=== PATIENT | male | born 1930 | race African-American/Black ===

== ENCOUNTER 2017-03-09 10:40 | Inpatient (IN) | payer MEDICARE, BC ==
--- NOTE | ~2017-03-09 | DS ---
Discharge Summary [facility] [address] [place]. [address] NAME: LUIS M TRAORE SR : [birth year] STATUS : DIS IN PAT#: [id number] AGE: 86 ADM/REG DATE : 03/09/17 MR#: [id number] REPORT SERV DATE: 03/13/17 DICTATED BY: SEBASTIEN GOMEZ DATE: 03/12/17 REPORT STATUS : Draft TRANSCRIBED BY: MODL DATE: 03/12/17 ADMISSION DATE: 03/09/2017 DISCHARGE DATE: 03/12/2017 DISCHARGE DIAGNOSES: 1. Acute on chronic systolic heart failure, ejection fraction of 35%. 2. Acute pulmonary edema and pulmonary hypertension. 3. Dyspnea, orthopnea, and hypoxemia. 4. Chronic kidney disease, stage III, most recent creatinine 1.60. 5. Anemia that is chronic, but did have a positive Hemoccult during this admission. 6. History of cerebrovascular accident. 7. Constipation. DISCHARGE MEDICATIONS: As follows: Lipitor 80 mg at bedtime, Bumex 2 mg daily, carvedilol 6.25 mg p.o. twice a day, vitamin B12 1000 mcg p.o. daily, coenzyme Q10 200 mg daily, ferrous sulfate 325 mg daily, potassium chloride 20 mEq daily, Imdur 30 mg daily, Plavix 75 mg daily, and aspirin 81 mg daily. Also, the patient will be discharging home on 2 liters of oxygen nasal cannula. HISTORY OF PRESENT ILLNESS: A very pleasant 86-year-old male who presented with shortness of breath and orthopnea for two weeks. Please see initial H and P of Dr. Marino Pereira. The patient was admitted to the Hospitalist Service for further evaluation and treatment. He was given IV diuresis. Lab work was ordered and followed. CONSULTS DURING THIS ADMISSION: Include Cardiology, Dr. Oracio Carvalho. PROCEDURES AND IMAGING DURING THIS ADMISSION: Include an echocardiogram showing borderline normal LV size, moderate decrease in systolic function, ejection fraction 35%, some global hypokinesis, afsrodjm-da-vdfsst left ventricular hypertrophy, fqqdgesv-rb-mleyyw pulmonary hypertension, a large left pleural effusion was noted; but when compared to previous study in September 2016, no significant change in ejection fraction. HOSPITAL COURSE: I began seeing the patient on 03/10/2017 where he had began to feel better with diuresis. His shortness of breath symptoms had begun to improve. On review of his lab work, his creatinine had climbed from 1.65 on admission to 1.83 likely with the diuresis. His TSH was checked on admission and it was elevated at 5.780. There was a recheck done with a free T4 and his TSH fell to 2.570 and a free T4 1.22, so no treatment was initiated at this time. He had the above-described echocardiogram. His diuretics were able to be deescalated to pill form. He resumed his prior home dose of Bumex. Creatinine fell back down to 1.6. He was ambulated in the hallway on room air and his sat drop to 85%. Initially, it was thought he did not have home O2, but he does currently have home oxygen and he will be continuing this. Given his symptomatic improvement and good diuresis, he was felt safe for discharge home on 03/12/2017 with instructions to follow up with his primary care next week to obtain an H and H. he will follow up with Cardiology, Dr. Whitfield, in two weeks. Medication changes were an increase in his Coreg dosage to 6.25 twice a day and Imdur has been added to his overall regimen. He was seen by the Heart failure Education Discharge Summary [address] [address] NAME: LUIS M TRAORE : [birth year] STATUS : DIS IN PAT#: [id number] AGE: 86 ADM/REG DATE : 03/09/17 MR#: [id number] REPORT SERV DATE: 03/13/17 DICTATED BY: SEBASTIEN GOMEZ DATE: 03/12/17 REPORT STATUS : Draft TRANSCRIBED BY: ALBERTO DATE: 03/12/17 Team and will receive home health through [email or web address] after discharge. The patient was in agreement with his plan going forward. Questions were answered at bedside extensively. Please note greater than 30 minutes was spent on this discharge for medication teaching, followup planning, and further disposition. DICTATED BY: Sebastien Gomez NP CSC/ALBERTO Sebastien Gomez NP / [id number] CC: Dayan Pierson D.O. F.A.C.P.
--- NOTE | ~2017-03-09 | HP ---
History And Physical [facility] [id number] [place]. [address] NAME: LUIS M TRAORE SR : [birth year] STATUS : ADM IN [facility]#: [id number] AGE: 86 ADM/REG DATE : 03/09/17 MR#: [id number] REPORT SERV DATE: 03/09/17 DICTATED BY: ADRY FELIZ DATE: 03/09/17 REPORT STATUS : Draft TRANSCRIBED BY: MODL DATE: 03/09/17 DATE OF ADMISSION: 03/09/2017 ATTENDING PHYSICIAN: Dr. Min. REASON FOR ADMISSION: Shortness of breath, orthopnea 2 weeks duration, worse last three days. HISTORY: This is an 86-year-old male, with known systolic congestive heart failure, ejection fraction 40%. He is followed by Dr. Whitfield for congestive heart failure. Dr. Beto Koehler saw him last month and he did not adjust the medications. He has some swelling in his lower extremities. He has lost weight at 180 pounds down to 120 pounds. His weight has been fairly stable. He has had maybe a slight increase in swelling in his ankles. His oxygen saturation is 98% with oxygen in the emergency room, and he is feeling better though he does have respirations that appeared to be periodic and resemble a Arslan-Adamson type of respiration. PAST MEDICAL HISTORY: He had an acute right periventricular CVA in the area of the calixto and within the whitehead radiata. He has chronic anemia. He is followed by Dr. Milton for this and given a shot assumed to be Aranesp. MEDICATIONS: Home medications are not identified yet. The patient does not know his home medications. He has chronically elevated troponins, it was 0.2 previously and is 0.12 now. He has falls, weakness, dyspnea with exertion. He has had chronic kidney disease. Creatinine has come up from 1.5 to 1.65 at this admission. His discharge medications in September at the time of his stroke was as follows: 1. Aspirin 81 mg p.o. daily. 2. Atorvastatin 80 mg p.o. at bedtime. 3. Carvedilol 3.125 p.o. b.i.d. 4. Plavix 75 mg p.o. daily. 5. CoQ10 200 mg p.o. daily. 6. Potassium chloride 20 mEq p.o. daily. 7. Vitamin B12 1000 mcg p.o. daily. 8. Ferrous sulfate 325 p.o. daily. SOCIAL HISTORY: He is . He lives off [facility] with his . She is older and disabled as well. He does not smoke cigarettes and really never has. 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 He has 4 children who are alive and well. His older son however has a problem with drugs and probably is drug addicted. 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 He does not take any alcohol. He does attend [employer] at the end of [place] History And Physical [address] [address] NAME: LUIS M TRAORE SR : [birth year] STATUS : ADM IN [facility]#: [id number] AGE: 86 ADM/REG DATE : 03/09/17 MR#: [id number] REPORT SERV DATE: 03/09/17 DICTATED BY: ADRY FELIZ DATE: 03/09/17 REPORT STATUS : Draft TRANSCRIBED BY: ALBERTO DATE: 03/09/17 [place]. FAMILY HISTORY: His father of cigarette smoking and lung disease. Mother of an [place]. He has brothers and sisters who have COPD as well though he never smoked himself. REVIEW OF SYSTEMS: He denied any chest pain, shortness of breath, or orthopnea. He has episodic and periodic shortness of breath. He has had no fever, chills, or night sweats, unilateral weakness, melena, or hematemesis. He has slight increase in the ankle edema. He does have dyspnea with exertion. No hemoptysis. No hematuria. No melena or hematemesis. He sees Dr. Milton for shots for the anemia periodically. He has had a bone marrow biopsy done 01/05/2014, that revealed a hypercellular marrow with absolute erythroid hyperplasia, but no other significant abnormalities. Previous questioning indicated the patient had cigarette smoking until the 1960s. He quit alcohol in the . The remainder of the review of systems is negative. PHYSICAL EXAMINATION: VITAL SIGNS: Blood pressure was 139/84 with a heart rate of 94, respiratory rate 18, but observed to be as high as 24, and oxygen saturation 98%. HEENT: EOMI. Sclerae clear. Conjunctivae pale. NECK: No bruit without any JVD. CHEST: Clear bilaterally with decreased breath sounds throughout. No dullness to percussion. HEART: Regular S1, S2 without murmur, gallop, or click. ABDOMEN: Soft and nontender. Bowel sounds positive, slightly protuberant and nontender. EXTREMITIES: Have edema at the ankles, 3+ bilaterally. No distal pulses are palpable over the popliteal. NEUROLOGIC: He withdraws to plantar stimulation. Relay Associate is symmetric bilaterally. Coordination intact. He has no tremor. The patient has poor understanding of medical terms generally and does not know his home medications. SKIN: Without rash, ecchymosis, or bruises. He is slightly pale generally. LYMPHATICS: There is no adenopathy palpable. LABORATORY: Urinalysis shows a specific gravity of 1.023, pH 5, protein 100 mg%, less than 100 white cell and red cell per high-powered field. His BNP was 2347. His sodium 143, potassium 4.6, BUN was 37, creatinine up to 1.65 from 1.5 previously. Creatinine clearance of 42 mL a minute. Troponin was 0.12 down from 0.2 last admission. Hemoglobin 11.3, hematocrit 35.1, MCV is 102.3, platelets 192,000, and white count 3300. Portable chest x-ray shows mild bibasilar atelectasis, probable trace of right pleural fluid, stable enlargement of the cardiac silhouette with minimal fullness in pulmonary vasculature. ASSESSMENT: History And Physical [address] [address] NAME: LUIS M TRAORE : [birth year] STATUS : ADM IN [facility]#: [id number] AGE: 86 ADM/REG DATE : 03/09/17 MR#: [id number] REPORT SERV DATE: 03/09/17 DICTATED BY: ADRY FELIZ DATE: 03/09/17 REPORT STATUS : Draft TRANSCRIBED BY: MODServando DATE: 03/09/17 1. Dyspnea with exertion, likely secondary to systolic congestive heart failure, out of control. 2. Orthopnea, likely secondary to dyspnea with exertion, likely secondary to systolic congestive heart failure, out of control. 3. Pulmonary edema. 4. Right pleural effusion. 5. History of cerebrovascular accident, 09/2016, periventricular and it sounds in the region of the calixto, though he has recovered from this. 6. Possible myeloproliferative disorder. The hypercellular marrow seen previously but with anemia being treated with an erythropoietin-like agent likely by Dr. Milton. 7. Heme-positive stool. 8. Chronic kidney disease now stage III. May worsen with additional diuretics. 9. Anemia chronic. 10.Chronic elevation of troponin of 0.12. We will repeat in the morning. 11.Previous hypoxemia. He was on oxygen at home but took it away from about 4 months ago. He did not get short of breath until about two weeks ago. He does not have home oxygen any longer at home. 12.Generalized weakness and weight loss. His weight has come down from 180 down to 125 though it has plateaued around 125. PLAN: We will try to identify his home medications. It appears he was not discharged on any diuretics though he says he is on fluid pills and Bumex which have been adjusted by previous notes. If he is not on diuretics, we will need to establish the use of some to help with the orthopnea. I will consult Dr. Whitfield who knows him and follows with him for congestive heart failure, and he will follow back up with Dr. Beto Koehler who may be able to adjust the diuretics on his own. ADDENDUM: The patient said he had a colonoscopy done 10 years ago at [facility]. He has heme-positive stool. We will try to trend the blood loss by serial hemoglobin and hematocrits. We will obtain in the morning. Once he has significant decline at age 86 with his chronic medical conditions, colonoscopy may be dangerous for him in balancing any benefit that may come from it. DB/MODL Adry Feliz M.D. / [id number] CC: Dayan Pierson D.O. F.A.CRo History And Physical [address] [address] NAME: LUIS M TRAORE SR : [birth year] STATUS : ADM IN PAT#: [id number] AGE: 86 ADM/REG DATE : 03/09/17 MR#: [id number] REPORT SERV DATE: 03/09/17 DICTATED BY: ADRY FELIZ DATE: 03/09/17 REPORT STATUS : Draft TRANSCRIBED BY: MODL DATE: 03/09/17 Dayan Cade IV, M.D.
--- NOTE | ~2017-03-09 | CN ---
Consultation Report [facility] [address] [place]. [address] NAME: LUIS M WEINER : [birth year] STATUS : ADM IN [facility]#: [id number] AGE: 86 ADM/REG DATE : 03/09/17 MR#: [id number] REPORT SERV DATE: 03/09/17 DICTATED BY: ROMAN MILLS DATE: 03/09/17 REPORT STATUS : Draft TRANSCRIBED BY: MODL DATE: 03/09/17 CARDIOLOGY CONSULTATION DATE OF CONSULTATION: 03/09/2017 PRIMARY CANE FLUME WATCHER: Raisa Whitfield M.D. CHIEF COMPLAINT: Shortness of breath, fatigue, diminished appetite. SOURCE: The patient, his son, and the chart. HISTORY OF PRESENT ILLNESS: Mr. Weiner is a very pleasant, 86-year-old black man with a history of congestive heart failure and stroke affecting the left side of the body in 09/2016. He was in his usual state of health but recently has had shortness of breath, fatigue, could not lie flat to sleep. He has had poor appetite. His ankles have been swelling. His weight has increased from 125 to 133 pounds. He has not had any chest pain, palpitations, or syncope. He came to [facility] and was admitted for further care. REVIEW OF SYSTEMS: All other systems are negative. ALLERGIES: SHELLFISH. MEDICATIONS: Included aspirin, atorvastatin, Bumex, carvedilol, clopidogrel, coenzyme Q10, cyanocobalamin, iron and potassium, also has EPO injections. CARDIAC RISK FACTORS: Elevated cholesterol, remote tobacco. Denies diabetes, hypertension, or family history. SOCIAL HISTORY: The patient lives in [place]. He is . He has four children, alive and well. He is retired. PAST MEDICAL HISTORY: Significant for congestive heart failure, last LVEF of 40% by echo in fall or winter 2015. He had a stroke in 09/2016 affecting left side of the body, reportedly no significant carotid stenosis, anemia on EPO injections, chronic kidney disease, status post hernia operations, status post hemorrhoidectomy, benign prostatic hypertrophy. FAMILY HISTORY: Negative for coronary disease at young age. PHYSICAL EXAMINATION: GENERAL: He is a very elderly black man, in no acute distress. VITAL SIGNS: Blood pressure is 146/82, pulse 72, temperature 97.5. HEENT/NECK: Sclerae anicteric. Lips without cyanosis. Carotids 2+ and symmetrical. Conjunctivae pale. No bruits. No JVD. Consultation Report [facility] [address] [place]. [address] NAME: LUIS M WEINER SR : [birth year] STATUS : ADM IN PAT#: [id number] AGE: 86 ADM/REG DATE : 03/09/17 MR#: [id number] REPORT SERV DATE: 03/09/17 DICTATED BY: ROMAN MILLS DATE: 03/09/17 REPORT STATUS : Draft TRANSCRIBED BY: ALBERTO DATE: 03/09/17 LUNGS: Rales bottom 1/3 bilaterally. Shallow inspiration. Fair air movement. No use of accessory muscles. HEART: Regular rate and rhythm without murmur, gallop, or rub. ABDOMEN: Positive bowel sounds, soft, and nontender. EXTREMITIES: Pulses 2+ and symmetrical. No cyanosis, clubbing, or edema. BACK: No CVA tenderness. MUSCULOSKELETAL: Diminished tone. NEUROLOGIC: Alert and oriented x3. IMAGING: EKG reveals sinus rhythm, first-degree AV block, occasional PACs, low voltage QRS, cannot exclude anterior myocardial infarction of undetermined age. LABORATORY EXAMINATION: Urinalysis; specific gravity 1.023, pH 5.0, protein 100, RBC less than 1, WBC less than 1. BNP level of 2347. Sodium 143, potassium 4.6, chloride 109, CO2 28, glucose 84, BUN 37, creatinine 1.65, troponin of 0.12, TSH of 5.78. White count 3.3, hemoglobin 11.3, hematocrit 35.3, platelets 192,000. MCV is 102, INR is 1.7, PTT of 30.1. Chest x-ray, mild bibasilar atelectasis with probable trace right pleural fluid, stable enlargement of cardiac silhouette with minimal fullness of the pulmonary vasculature. IMPRESSION: 1. Jsthj-cg-ujpafph systolic congestive heart failure. 2. Chronic kidney disease, stage III. 3. Status post stroke affecting the left body in 09/2016. 4. LVEF of 40% by most recent echo. 5. Small increase in troponin, probably due to congestive heart failure. 6. Anemia, on erythropoietin injections. 7. Elevated cholesterol, on statin therapy. 8. Remote tobacco use. RECOMMENDATIONS: 1. Diuresis with IV Bumex. 2. Increase carvedilol. 3. Check echocardiogram for reassessment of left ventricular systolic function. 4. Check CPK and MB. Cycle cardiac enzymes. 5. See orders. 6. Further recommendations when Dr. Whitfield returns. CASSANDRA/ALBERTO Roman Mills M.D. / [id number] Consultation Report [address] [place]. [address] NAME: LUIS M WEINER : [birth year] STATUS : ADM IN PAT#: [id number] AGE: 86 ADM/REG DATE : 03/09/17 MR#: [id number] REPORT SERV DATE: 03/09/17 DICTATED BY: ROMAN MILLS DATE: 03/09/17 REPORT STATUS : Draft TRANSCRIBED BY: ALBERTO DATE: 03/09/17 CC: Dayan Pierson D.O. F.A.C.P.
[~2017-03-09 10:40] MED LIST: APPLE CIDAR VINEGAR PO; ASAB PO; BUM1 PO; BUM2 PO; CO Q-10200 MG PO; COREG3 PO; CYANO1000T PO; FERROUS SULF325 M1 PO; FISH OIL1200 MG PO; HYDROCHLOROT25 MG PO; HYTRIN10 MG PO; KLOR-CON M2020 MEQ; KLOR-CON M2020 MEQ PO; MAGOX4; MELATONIN OTC PO; PRAVACHOL40 MG PO; PRIN10 PO; VITC500 PO; ZESTORETIC1 TAB PO
[2017-03-09 12:00] LABS: BASOPHILS 0.3 %; BASOPHILS ABSOLUTE 0.01 10/3/uL (0.0-0.16); EOSINOPHILS 0.9 %; EOSINOPHILS ABSOLUTE 0.03 10/3/uL (0.0-0.53); ER CBC TAT 0 Hrs 08 Mins; HEMATOCRIT 35.3 % (40.0-51.0); HEMOGLOBIN 11.3 g/dL (13.6-17.8); LYMPHOCYTES 29.1 %; LYMPHOCYTES ABSOLUTE 0.95 10/3/uL (0.67-4.30); MANUAL DIFF NO %; MEAN CORPUSCULAR HEMOGLOB 32.8 pg (26.0-34.0); MEAN CORPUSCULAR VOLUME 102.3 fL (80-100); MEAN PLATELET VOLUME 10.1 fL (9.2-13.0); MONOCYTES 11.6 %; MONOCYTES ABSOLUTE 0.38 10/3/uL (0.21-1.20); NEUTROPHILS 58.1 %; PLATELET COUNT 192 10/3/uL (150-400); RBC DISTRIBUTION WIDTH 17.3 % (12.0-16.0); RED CELL COUNT 3.45 10/6/uL (4.7-6.1); WHITE BLOOD CELLS 3.3 10/3/uL (4.5-10.5)
[2017-03-09 12:09] LABS: INTERNATIONAL NORMAL RATI 1.7 UNITS (-); PARTIAL THROMBO TIME 30.1 SEC (22.5-37.2)
[2017-03-09 12:14] LABS: PROTIME (NOT ORD) 19.6 SEC (12.0-14.5)
[2017-03-09 12:17] LABS: CALCIUM, SERUM 9.2 MG/DL (8.5-10.4); CHLORIDE, SERUM 109 MMOL/L (96-112); CO2 (CARBON DIOXIDE) 28 MMOL/L (24-34); CREATININE 1.65 MG/DL (0.70-1.30); GFR AFRICAN AMERICAN 42 ML/MIN (>=60); GFR NON AFRICAN AMERICAN 37 ML/MIN (>=60); GLUCOSE, SERUM 84 MG/DL (60-99); POTASSIUM, SERUM 4.6 MMOL/L (3.5-5.3); SODIUM, SERUM 143 MMOL/L (135-148)
[2017-03-09 12:19] LABS: BUN (BLOOD UREA NITROGEN) 37 MG/DL (6-23)
[2017-03-09 12:22] LABS: CHEST PAIN PROFILE TAT 0 Hrs 30 Mins; TROPONIN I 0.12 NG/ML (<0.05)
[2017-03-09 13:12] LABS: ASCORBIC ACID (UR NOT ORDER) 40 (NEG); BILIRUBIN, URINE NEGATIVE (NEG); ER URINALYSIS TAT 0 Hrs 13 Mins; KETONE, URINE NEGATIVE (NEG); LEUKOCYTE ESTERASE(NOT OR NEG (NEG); NITRITE (URINE) NEG (NEG); WBC (NOT ORDERED) (RFLEX) < 1 (0-5)
[2017-03-09] MEDS ORDERED: LIPITOR80 MG PO (14:44)
[2017-03-09] MEDS ORDERED: BUM2 PO (14:44)
[2017-03-09] MEDS ORDERED: COREG3 PO (14:44)
[2017-03-09] MEDS ORDERED: PLAVIX PO (14:44)
[2017-03-09] MEDS ORDERED: *UNABLE1 (14:45)
[2017-03-09] MEDS ORDERED: HALF81 PO (14:59)
[2017-03-09] MEDS ORDERED: CO Q-10200 MG PO (15:00)
[2017-03-09] MEDS ORDERED: FERROUS SULF325 M1 PO (15:00)
[2017-03-09] MEDS ORDERED: CYANO1000T PO (15:00)
[2017-03-09] MEDS ORDERED: KLOR-CON M2020 MEQ PO (15:00)
[2017-03-09 17:56] LABS: CPK 74 U/L (0-200)
[2017-03-09 17:57] LABS: CK-MB 2.4 NG/ML
[2017-03-10 05:20] LABS: BASOPHILS 0.6 %; BASOPHILS ABSOLUTE 0.02 10/3/uL (0.0-0.16); EOSINOPHILS 0.3 %; EOSINOPHILS ABSOLUTE 0.01 10/3/uL (0.0-0.53); HEMATOCRIT 33.7 % (40.0-51.0); HEMOGLOBIN 10.8 g/dL (13.6-17.8); LYMPHOCYTES 24.7 %; LYMPHOCYTES ABSOLUTE 0.82 10/3/uL (0.67-4.30); MEAN CORPUSCULAR HEMOGLOB 32.2 pg (26.0-34.0); MEAN CORPUSCULAR VOLUME 100.6 fL (80-100); MEAN PLATELET VOLUME 9.9 fL (9.2-13.0); MONOCYTES 13.3 %; MONOCYTES ABSOLUTE 0.44 10/3/uL (0.21-1.20); NEUTROPHILS 61.1 %; NEUTROPHILS ABSOLUTE 2.03 10/3/uL (2.02-8.40); PLATELET COUNT 177 10/3/uL (150-400); RBC DISTRIBUTION WIDTH 17.2 % (12.0-16.0); RED CELL COUNT 3.35 10/6/uL (4.7-6.1); WHITE BLOOD CELLS 3.3 10/3/uL (4.5-10.5)
[2017-03-10 05:23] LABS: MANUAL DIFF NO %
[2017-03-10 05:37] LABS: BUN (BLOOD UREA NITROGEN) 39 MG/DL (6-23); CALCIUM, SERUM 9.1 MG/DL (8.5-10.4); CHLORIDE, SERUM 108 MMOL/L (96-112); CK-MB 2.7 NG/ML; CO2 (CARBON DIOXIDE) 27 MMOL/L (24-34); CPK 108 U/L (0-200); CREATININE 1.83 MG/DL (0.70-1.30); GFR AFRICAN AMERICAN 37 ML/MIN (>=60); GFR NON AFRICAN AMERICAN 32 ML/MIN (>=60); GLUCOSE, SERUM 96 MG/DL (60-99); POTASSIUM, SERUM 4.1 MMOL/L (3.5-5.3); SODIUM, SERUM 143 MMOL/L (135-148); TROPONIN I 0.16 NG/ML (<0.05)
[2017-03-11 06:03] LABS: BUN (BLOOD UREA NITROGEN) 35 MG/DL (6-23); CALCIUM, SERUM 8.8 MG/DL (8.5-10.4); CHLORIDE, SERUM 106 MMOL/L (96-112); CO2 (CARBON DIOXIDE) 28 MMOL/L (24-34); FREE T4 1.22 NG/DL (0.76-1.46); GFR AFRICAN AMERICAN 44 ML/MIN (>=60); GFR NON AFRICAN AMERICAN 38 ML/MIN (>=60); GLUCOSE, SERUM 92 MG/DL (60-99); POTASSIUM, SERUM 3.6 MMOL/L (3.5-5.3); SODIUM, SERUM 143 MMOL/L (135-148)
[2017-03-12 11:09] LABS: HEMATOCRIT 31.2 % (40.0-51.0); HEMOGLOBIN 10.1 g/dL (13.6-17.8)
[2017-03-12] MEDS ORDERED: IMDUR30 PO (12:27)
[2017-03-12] MEDS ORDERED: COREG6 PO (12:28)
[2017-07-11] MEDS ORDERED: KDUR20 PO (19:22)
[2017-07-11] MEDS ORDERED: LIPITOR80 MG PO (19:22)
[2017-07-11] MEDS ORDERED: PLAVIX PO (19:22)
[2017-07-11] MEDS ORDERED: COREG PO (19:23)
[2017-07-11] MEDS ORDERED: FERROUS SULF325 M1 PO (19:26)
[2017-07-11] MEDS ORDERED: ASAB PO (19:27)
[2017-07-11] MEDS ORDERED: CO Q-10200 MG PO (19:27)
[2017-07-11] MEDS ORDERED: CYANO1000T PO (19:28)
[2017-07-11] MEDS ORDERED: BUM2 PO ×2 (19:31→19:32)
== END 2017-03-12 13:58 | disposition home health service (06) | DRG 292 ==
LOC: ER 10:40 → 2SO 15:21
PROVIDERS: Emergency Medicine; Internal Medicine; Nurse Practitioner Family
DX: I50.23 Acute on chronic systolic (congestive) heart failure (principal); C94.6 Myelodysplastic disease, not elsewhere classified; K92.1 Melena; I27.2 Other secondary pulmonary hypertension; N18.3 Chronic kidney disease, stage 3 (moderate); D50.9 Iron deficiency anemia, unspecified; K59.00 Constipation, unspecified; I44.0 Atrioventricular block, first degree; R63.4 Abnormal weight loss; N40.0 Benign prostatic hyperplasia without lower urinary tract symptoms; E78.00 Pure hypercholesterolemia, unspecified; Z86.73 Personal history of transient ischemic attack (TIA), and cerebral infarction without residual deficits; Z91.81 History of falling; Z79.02 Long term (current) use of antithrombotics/antiplatelets; Z79.82 Long term (current) use of aspirin; Z82.5 Family history of asthma and other chronic lower respiratory diseases; Z82.49 Family history of ischemic heart disease and other diseases of the circulatory system; Z87.891 Personal history of nicotine dependence; Z68.21 Body mass index [BMI] 21.0-21.9, adult; Z91.013 Allergy to seafood
CPT/HCPCS: 71010; 80048; 81001; 82550; 82553; 82962; 83735; 83880; 84132; 84439; 84443; 84484; 85014; 85018; 85025; 85610; 85730; 93005; 93306; 96374; 99285; A9270-GY; C9113; J1940